=== PATIENT | female | born 1970 | race Caucasian/White ===

== ENCOUNTER 2016-11-23 15:48 | Outpatient (CLI) | payer OTHER ==
[~2016-11-23 15:48] MED LIST: CELEXA20 MG PO; FLONASE AL50 MCG/ACT; TOPROL XL50 MG PO; VICODIN EQUIVAL1 TAB PO; VITAMIN B12100 MCG PO; VITAMIN D-31000 UNIT PO; WELLBUTRIN SR150 MG PO; ZYRTEC-D ALLERG1 TAB PO
== END 2016-11-23 23:00 ==
LOC: LAB SRH 15:48
DX: D50.9 Iron deficiency anemia, unspecified (principal); E03.9 Hypothyroidism, unspecified
CPT/HCPCS: 90074; 91284; 92668; 93080; 93140; 95059